=== PATIENT | male | born 1955 | race Caucasian/White ===

== ENCOUNTER 2018-11-19 13:45 | Emergency (ER) | payer MEDICARE, MEDICAID ==
[~2018-11-19] VITALS: Ht 165.1 cm; Wt 150.0 kg
[~2018-11-19 13:45] MED LIST: ASPIRIN CHEWABL81 MG OR; FLEXERIL OR; METFORMIN500 M1 OR; METFORMIN500 M1 PO; NEURONTIN100 MG PO; NO HOME MEDS; PRAVACHOL40 MG PO; ULTRAM50 M1 PO; ZESTRIL10 M1 PO
[2018-11-19 14:36] LABS: HEMATOCRIT 43.1 % (39.0-50.0); IMMATURE GRANULOCYTES 0.4 % (0.0-5.0); MEAN CELL VOLUME 90.9 fL CALC (80.0-100.0); MEAN CORPUSCULAR HGB 27.4 pG CALC (26.0-32.0); MEAN CORPUSCULAR HGB CONC 30.2 g/L CALC (32.0-36.0); RED BLOOD COUNT 4.74 mill/uL (4.70-6.10); RED CELL DISTRI WIDTH 16.8 % (11.5-15.5)
[2018-11-19 15:08] LABS: ANION GAP 13 (6-22 (CALC)); BUN 27 mg/dL (8-23); CARBON DIOXIDE 24 mmol/l (22-30); CHLORIDE 110 mmol/l (95-108); POTASSIUM 4.2 mmol/l (3.5-5.1)
[2018-11-19] MEDS ORDERED: METFORMIN500 MG PO (15:08)
[2018-11-19] MEDS ORDERED: ZESTRIL10 M1 PO (15:08)
[2018-11-19 15:16] LABS: URINE BILIRUBIN - DIPSTICK NEGATIVE (NEGATIVE); URINE BLOOD DIPSTICK MODERATE (NEGATIVE); URINE COLOR YELLOW; URINE GLUCOSE - DIPSTICK 100 mg/dL (NEGATIVE); URINE KETONE NEGATIVE (NEGATIVE); URINE LEUK ESTERASE NEGATIVE (NEGATIVE); URINE NITRITE - DIPSTICK NEGATIVE (Negative); URINE PROTEIN - DIPSTICK >=300 mg/dL (NEG-TRACE); URINE SPECIFIC GRAVITY >=1.030; URINE UROBILINOGEN - DIPSTICK 0.2 E.U./dL (0.2)
[2018-11-19 15:22] LABS: BUN/CREATININE RATIO 11 (12-20 (CALC)); CREATININE 2.5 mg/dL (0.7-1.3); GFR 26 ML/MIN (>=60 (CALC)); GFR FOR AFR.AMER. 32 ML/MIN (>=60 (CALC)); SODIUM 143 mmol/l (137-146)
[2018-11-19 15:25] LABS: URINE WBC 0-2 WBC/hpf (0-5)
[2018-11-19 17:56] VITALS: BP 186/90
== END 2018-11-19 17:38 | disposition short-term general hospital (02) ==
LOC: ED 13:45 → ED-I 13:59 → ED 13:59 → ED-I 15:18 → ED 17:38
PROVIDERS: Family Medicine
DX: I50.9 Heart failure, unspecified (principal); N28.9 Disorder of kidney and ureter, unspecified; N50.819 Testicular pain, unspecified; R06.02 Shortness of breath; R22.43 Localized swelling, mass and lump, lower limb, bilateral

== ENCOUNTER 2019-02-06 15:18 | Observation (INO) | payer MEDICARE, MEDICAID ==
[~2019-02-06] VITALS: Ht 165.1 cm; Wt 99.0 kg
[~2019-02-06 15:18] MED LIST changes: +METFORMIN500 MG PO
[2019-02-06 16:07] LABS: HEMATOCRIT 44.6 % (39.0-50.0); HEMOGLOBIN 14.9 g/dl (14.0-18.0); IMMATURE GRANULOCYTES 0.5 % (0.0-5.0); MEAN CELL VOLUME 86.1 fL CALC (80.0-100.0); MEAN CORPUSCULAR HGB 28.8 pG CALC (26.0-32.0); MEAN CORPUSCULAR HGB CONC 33.4 g/L CALC (32.0-36.0); NEUT# 12.33 thou/uL (1.82-7.42); RED BLOOD COUNT 5.18 mill/uL (4.70-6.10); RED CELL DISTRI WIDTH 14.7 % (11.5-15.5)
[2019-02-06 16:31] LABS: POTASSIUM 4.9 mmol/l (3.5-5.1)
[2019-02-06 16:33] LABS: ALBUMIN 4.5 g/dL (3.2-5.0); BILIRUBIN, TOTAL 1.3 mg/dL (0.0-1.4); CREATININE 3.6 mg/dL (0.7-1.3); TOTAL PROTEIN 8.5 g/dL (6.3-8.2)
[2019-02-06 17:29] LABS: TSH, 3RD GENERATION 3.55 uIU/mL (0.47 - 4.68)
[2019-02-06] MEDS ORDERED: BUMETANIDE1 MG PO (17:40)
[2019-02-06] MEDS ORDERED: AMLOD/BENAZP1 CA3 PO (17:40)
[2019-02-06] MEDS ORDERED: CARVEDILOL6.25 MG PO (17:40)
[2019-02-06] MEDS ORDERED: HYDRALAZINE50 MG PO (17:40)
[2019-02-06] MEDS ORDERED: LEVOTHYROXIN50 MCG PO (17:41)
[2019-02-06] MEDS ORDERED: SPIRONOLACT50 MG PO (17:41)
[2019-02-06 18:01] LABS: URINE BILIRUBIN - DIPSTICK NEGATIVE (NEGATIVE); URINE BLOOD DIPSTICK SMALL (NEGATIVE); URINE COLOR YELLOW; URINE GLUCOSE - DIPSTICK 100 mg/dL (NEGATIVE); URINE KETONE NEGATIVE (NEGATIVE); URINE LEUK ESTERASE NEGATIVE (NEGATIVE); URINE NITRITE - DIPSTICK NEGATIVE (Negative); URINE PH 5.5 (4.5-8.0); URINE PROTEIN - DIPSTICK >=300 mg/dL (NEG-TRACE); URINE SPECIFIC GRAVITY >=1.030; URINE UROBILINOGEN - DIPSTICK 0.2 E.U./dL (0.2)
[2019-02-06 18:02] LABS: URINE WBC 0-2 WBC/hpf (0-5)
[2019-02-06 19:35] VITALS: BP 112/71
[2019-02-07] VITALS (7 sets, daily range): BP systolic 115–175; BP diastolic 62–90
[2019-02-07 04:50] LABS: HEMOGLOBIN 14.4 g/dl (14.0-18.0); MEAN CELL VOLUME 86.8 fL CALC (80.0-100.0); MEAN CORPUSCULAR HGB 28.4 pG CALC (26.0-32.0); MEAN CORPUSCULAR HGB CONC 32.7 g/L CALC (32.0-36.0); RED BLOOD COUNT 5.07 mill/uL (4.70-6.10); RED CELL DISTRI WIDTH 14.6 % (11.5-15.5)
[2019-02-07 05:09] LABS: ALBUMIN 3.7 g/dL (3.2-5.0); BILIRUBIN, TOTAL 1.4 mg/dL (0.0-1.4); CREATININE 2.8 mg/dL (0.7-1.3); POTASSIUM 4.7 mmol/l (3.5-5.1); TOTAL PROTEIN 7.4 g/dL (6.3-8.2)
[2019-02-07 09:12] LABS: CHOLESTEROL HDL RATIO 5.4 (<4.4 (CALC)); MAGNESIUM 2.5 mg/dL (1.6-2.3)
[2019-02-07] MEDS ORDERED: NORVASC5 M1 PO (10:10)
[2019-02-07 12:21] LABS: PROTHROMBIN TIME 10.9 SECONDS (9.0-12.5)
[2019-02-08] VITALS (7 sets, daily range): BP systolic 120–178; BP diastolic 66–97
[2019-02-08 05:51] LABS: HEMATOCRIT 38.4 % (39.0-50.0); HEMOGLOBIN 12.7 g/dl (14.0-18.0); IMMATURE GRANULOCYTES 0.4 % (0.0-5.0); MEAN CELL VOLUME 87.3 fL CALC (80.0-100.0); MEAN CORPUSCULAR HGB 28.9 pG CALC (26.0-32.0); MEAN CORPUSCULAR HGB CONC 33.1 g/L CALC (32.0-36.0); NEUT# 13.41 thou/uL (1.82-7.42); RED BLOOD COUNT 4.4 mill/uL (4.70-6.10); RED CELL DISTRI WIDTH 14.6 % (11.5-15.5)
[2019-02-08 05:52] LABS: CREATININE 2.7 mg/dL (0.7-1.3); POTASSIUM 4.4 mmol/l (3.5-5.1)
[2019-02-09] VITALS (7 sets, daily range): BP systolic 115–178; BP diastolic 64–95
[2019-02-09 05:35] LABS: HEMATOCRIT 36.6 % (39.0-50.0); HEMOGLOBIN 12.1 g/dl (14.0-18.0); IMMATURE GRANULOCYTES 0.9 % (0.0-5.0); MEAN CELL VOLUME 87.8 fL CALC (80.0-100.0); MEAN CORPUSCULAR HGB CONC 33.1 g/L CALC (32.0-36.0); NEUT# 8.55 thou/uL (1.82-7.42); RED BLOOD COUNT 4.17 mill/uL (4.70-6.10); RED CELL DISTRI WIDTH 14.8 % (11.5-15.5)
[2019-02-09 05:39] LABS: CREATININE 2.3 mg/dL (0.7-1.3); MAGNESIUM 1.9 mg/dL (1.6-2.3); POTASSIUM 4.1 mmol/l (3.5-5.1)
[2019-02-10] VITALS (10 sets, daily range): BP systolic 107–171; BP diastolic 40–90
[2019-02-10] MEDS ORDERED: BUMETANIDE1 MG PO (11:51)
[2019-02-10] MEDS ORDERED: PROTONIX40 MG PO (11:51)
[2019-02-10] MEDS ORDERED: NORVASC5 M1 PO (11:51)
== END 2019-02-10 13:53 | disposition home health service (06) ==
LOC: ED 15:18 → ED-I 17:51 → ED 18:06 → MS2 18:07
PROVIDERS: Family Medicine; Nurse Anesthetist, Certified Registered; Nurse Practitioner Family; ADMIT Internal Medicine; ATTEND Internal Medicine
PROC: 0DJ08ZZ Inspection of Upper Intestinal Tract, Via Natural or Artificial Opening Endoscopic (ICD-10-PCS; principal; 2019-02-10)
PROC: 0DBH8ZX Excision of Cecum, Via Natural or Artificial Opening Endoscopic, Diagnostic (ICD-10-PCS; 2019-02-10)
PROC: 0DBL8ZX Excision of Transverse Colon, Via Natural or Artificial Opening Endoscopic, Diagnostic (ICD-10-PCS; 2019-02-10)
DX: R10.13 Epigastric pain (principal); R11.2 Nausea with vomiting, unspecified; R63.4 Abnormal weight loss; R63.0 Anorexia; N17.9 Acute kidney failure, unspecified; K80.20 Calculus of gallbladder without cholecystitis without obstruction; R62.7 Adult failure to thrive; K29.70 Gastritis, unspecified, without bleeding; D12.0 Benign neoplasm of cecum; D12.3 Benign neoplasm of transverse colon; Z68.33 Body mass index [BMI] 33.0-33.9, adult; E78.5 Hyperlipidemia, unspecified; E03.9 Hypothyroidism, unspecified; E11.22 Type 2 diabetes mellitus with diabetic chronic kidney disease; I13.0 Hypertensive heart and chronic kidney disease with heart failure and stage 1 through stage 4 chronic kidney disease, or unspecified chronic kidney disease; I50.9 Heart failure, unspecified; E11.40 Type 2 diabetes mellitus with diabetic neuropathy, unspecified; E11.69 Type 2 diabetes mellitus with other specified complication; N18.3 Chronic kidney disease, stage 3 (moderate); E86.1 Hypovolemia; E86.0 Dehydration; T50.2X5A Adverse effect of carbonic-anhydrase inhibitors, benzothiadiazides and other diuretics, initial encounter; K59.00 Constipation, unspecified
CPT/HCPCS: S0164

== ENCOUNTER 2019-02-13 12:20 | Emergency (ER) | payer MEDICARE, MEDICAID ==
[~2019-02-13] VITALS: Ht 165.1 cm; Wt 99.0 kg
[~2019-02-13 12:20] MED LIST changes: +AMLOD/BENAZP1 CA3 PO; +BUMETANIDE1 MG PO; +CARVEDILOL6.25 MG PO; +HYDRALAZINE50 MG PO; +LEVOTHYROXIN50 MCG PO; +NORVASC5 M1 PO; +PROTONIX40 MG PO; +SPIRONOLACT50 MG PO
[2019-02-13] MEDS ORDERED: ALLOPURINOL100 MG PO (12:35)
[2019-02-13 13:06] LABS: HEMATOCRIT 34.1 % (39.0-50.0); HEMOGLOBIN 11.5 g/dl (14.0-18.0); IMMATURE GRANULOCYTES 0.6 % (0.0-5.0); MEAN CELL VOLUME 86.8 fL CALC (80.0-100.0); MEAN CORPUSCULAR HGB 29.3 pG CALC (26.0-32.0); MEAN CORPUSCULAR HGB CONC 33.7 g/L CALC (32.0-36.0); NEUT# 7.28 thou/uL (1.82-7.42); RED BLOOD COUNT 3.93 mill/uL (4.70-6.10); RED CELL DISTRI WIDTH 15.3 % (11.5-15.5)
[2019-02-13 13:27] LABS: CREATININE 1.8 mg/dL (0.7-1.3); POTASSIUM 3.8 mmol/l (3.5-5.1)
[2019-02-13 13:28] LABS: ALBUMIN 2.9 g/dL (3.2-5.0); BILIRUBIN, TOTAL 0.5 mg/dL (0.0-1.4); TOTAL PROTEIN 5.8 g/dL (6.3-8.2)
[2019-02-13] MEDS ORDERED: LASIX 20 MG TAB20 MG PO (14:49)
[2019-02-13 14:51] LABS: URINE BILIRUBIN - DIPSTICK NEGATIVE (NEGATIVE); URINE BLOOD DIPSTICK NEGATIVE (NEGATIVE); URINE COLOR YELLOW; URINE GLUCOSE - DIPSTICK 100 mg/dL (NEGATIVE); URINE KETONE NEGATIVE (NEGATIVE); URINE LEUK ESTERASE NEGATIVE (NEGATIVE); URINE NITRITE - DIPSTICK NEGATIVE (Negative); URINE PH 5.5 (4.5-8.0); URINE PROTEIN - DIPSTICK 100 mg/dL (NEG-TRACE); URINE UROBILINOGEN - DIPSTICK 0.2 E.U./dL (0.2)
[2019-02-13 14:56] LABS: URINE RBC 0-2 RBC/hpf (0-5); URINE WBC 0-2 WBC/hpf (0-5)
[2019-02-13 15:15] VITALS: BP 107/59
== END 2019-02-13 15:15 | disposition home or self-care (01) ==
LOC: ED 12:20
PROVIDERS: Family Medicine
DX: I95.1 Orthostatic hypotension (principal); I11.0 Hypertensive heart disease with heart failure; I50.9 Heart failure, unspecified; E11.9 Type 2 diabetes mellitus without complications; M10.9 Gout, unspecified

== ENCOUNTER 2019-10-17 19:23 | Inpatient (IN) | payer MEDICARE, MEDICAID ==
[~2019-10-17] VITALS: Ht 165.1 cm; Wt 116.3 kg
[~2019-10-17 19:23] MED LIST changes: +ALLOPURINOL100 MG PO; +LASIX 20 MG TAB20 MG PO
--- NOTE | 2019-10-17 20:18 | NUR ---
BY WC TO ROOM
--- NOTE | 2019-10-17 21:00 | NUR ---
RESTING QUIETLY. AWAITING TEST RESULTS
[2019-10-17 21:03] LABS: HEMATOCRIT 37.5 % (39.0-50.0); HEMOGLOBIN 11.6 g/dl (14.0-18.0); IMMATURE GRANULOCYTES 0.2 % (0.0-5.0); MEAN CELL VOLUME 92.4 fL CALC (80.0-100.0); MEAN CORPUSCULAR HGB 28.6 pG CALC (26.0-32.0); MEAN CORPUSCULAR HGB CONC 30.9 g/dL CAL (32.0-36.0); NEUT# 3.7 thou/uL (1.82-7.42); RED BLOOD COUNT 4.06 mill/uL (4.70-6.10); RED CELL DISTRI WIDTH 16.1 % (11.5-15.5)
[2019-10-17 21:23] LABS: ALBUMIN 3.1 g/dL (3.2-5.0); BILIRUBIN, TOTAL 0.3 mg/dL (0.0-1.4); TOTAL PROTEIN 5.9 g/dL (6.3-8.2)
[2019-10-17 21:24] LABS: CREATININE 4.2 mg/dL (0.7-1.3)
--- NOTE | 2019-10-17 22:00 | NUR ---
NO CHANGE IN EXAM. AWAITING DISPOSITION.
--- NOTE | 2019-10-17 23:08 | NUR ---
TELEPHONE REPORT RECEIVED FROM Reese DOWLING RN. ROOM 281 PREPARED FOR PTs ARRIVAL.
--- NOTE | 2019-10-17 23:16 | NUR ---
Admission Note Report Given to: KASSDIY CASTANON Transported by: Wheelchair X Stretcher Transported with: X Nurse Transporter X Patent IV X O2 X Microscopist Location: ICU X MS2
--- NOTE | 2019-10-17 23:16 | NUR ---
UNABLE TO DETERMINE LAST MED DOSAGES GIVEN.
--- NOTE | 2019-10-17 23:20 | NUR ---
PT ARRIVES TO UNIT VIA STRETCHER, ACCOMPANIED BY Reese DOWLING RN. PT AMBULATORY TO BED. PT ORIENTED TO UNIT, ROOM, BED/TV/CALL LIGHT. PT VERBALIZES UNDERSTANDING. DENIES NEEDS AT THIS TIME. PT DENIES DISCONFORT AT THIS TIME. ITEMS WITHIN REACH. BED LOCKED IN LOW POSITION WITH BEDRAILS UP X2. CALL GUILLEN WITHIN REACH. AGREES TO CALL PRN.
[2019-10-17 23:37] VITALS: BP 195/107
[2019-10-17 23:58] LABS: URINE BILIRUBIN - DIPSTICK NEGATIVE (NEGATIVE); URINE BLOOD DIPSTICK MODERATE (NEGATIVE); URINE COLOR YELLOW; URINE GLUCOSE - DIPSTICK 250 mg/dL (NEGATIVE); URINE KETONE NEGATIVE (NEGATIVE); URINE LEUK ESTERASE NEGATIVE (NEGATIVE); URINE NITRITE - DIPSTICK NEGATIVE (Negative); URINE PROTEIN - DIPSTICK >=300 mg/dL (NEG-TRACE); URINE SPECIFIC GRAVITY 1.025; URINE UROBILINOGEN - DIPSTICK 0.2 E.U./dL (0.2)
[2019-10-17 23:59] LABS: URINE WBC 0-2 WBC/hpf (0-5)
[2019-10-18] VITALS (7 sets, daily range): BP systolic 136–195; BP diastolic 68–93
--- NOTE | 2019-10-18 00:10 | NUR ---
ADMISSION AND PHYSICAL ASSESMENT COMPLETE. PT CURRENTLY DENIES PAIN OR DISCOMFORT. B/L PUGH ULCERATIONS, COVERED WITH WHAT APPEARS TO BE MATTED HAIR, DIRT, AND DRIED BLOOD. BLE CLEANSED WITH SALINE, PATTED DRY. PICTURE DOCUMENTATION TAKEN AND PLACED ON CHART. DUODERM HYDROCOLLOID DRESSING PLACED OVER B/L PUGH ULCERS. SCHEDULED MEDS ADMINISTERED, SEE E-MAR. PT DENIES ANY NEEDS AT THIS TIME. PLAN OF CARE REVIEWED, PT DENIES QUESTIONS, VERBALIZES UNDERSTANDING. DENIES NEEDS AT THIS TIME. ITEMS WITHIN REACH, BED LOCKED IN LOW POSITION W/ BEDRAILS UP X2. CALL GUILLEN WITHIN REACH, AGREES TO CALL PRN.
--- NOTE | 2019-10-18 01:42 | NUR ---
UPON ENTERING ROOM PT APPEARS TO BE SLEEPING. APPEARS COMFORTABLE AND IN NO APPARENT DISTRESS. RESPIRATIONS ARE REGULAR AND UNLABORED. ITEMS REMAIN WITHIN REACH, BED REMAINS LOCKED IN LOW POSITION W/ BEDRAILS UP X2 AND CALL GUILLEN REMAINS WITHIN REACH.
[2019-10-18 06:12] LABS: HEMATOCRIT 34.1 % (39.0-50.0); HEMOGLOBIN 10.8 g/dl (14.0-18.0); IMMATURE GRANULOCYTES 0.2 % (0.0-5.0); MEAN CELL VOLUME 91.7 fL CALC (80.0-100.0); MEAN CORPUSCULAR HGB CONC 31.7 g/dL CAL (32.0-36.0); NEUT# 3.63 thou/uL (1.82-7.42); RED BLOOD COUNT 3.72 mill/uL (4.70-6.10)
--- NOTE | 2019-10-18 06:20 | NUR ---
PT SIITNG UP AT EDGE OF BED. NO APPARENT DISTRESS. RESPIRATIONS REGULAR AND UNLABORED.PHYSICAL ASSESMENT UNCHANGED FROM BEGINING OF SHIFT BASELINE. PT AFEBRILE, HEMODYNAMICS STABLE. AM LABS DRAWN. DENIES NEEDS AT THIS TIME. ITEMS REMAIN WITHIN REACH. BED REMAINS LOCKED IN LOW POSITION W/ BEDRAILS UPX2. CALL GUILLEN REMAINS WITHIN REACH, AGREES TO CALL PRN.
[2019-10-18 06:30] LABS: ALBUMIN 2.7 g/dL (3.2-5.0); BILIRUBIN, TOTAL 0.3 mg/dL (0.0-1.4); C-REACTIVE PROTEIN 1.9 mg/dL (0-0.9); CREATININE 4.1 mg/dL (0.7-1.3); POTASSIUM 4.1 mmol/l (3.5-5.1); TOTAL PROTEIN 5.3 g/dL (6.3-8.2)
--- NOTE | 2019-10-18 07:00 | NUR ---
REPORT RECEIVED FROM KASSIDY CASTANON.
--- NOTE | 2019-10-18 08:44 | NUR ---
PT SITTING UP IN EDGE OF BED; ALERT AND ORIENTED. DENIES PAIN. RESPIRATIONS EVEN AND UNLABORED ON OXYGEN 1.5L; DENIES SOB WHILE SITTING UP, BUT STATES THAT HE HAS SLIGHT SOB WHEN LAYING DOWN; PT IS OBESE. BLOOD PRESSURE ELEVATED AT 195/93 HR 74; SCHEDULED BP MEDS ADMINISTERED ALONG WITH NEW ORDER FOR LASIX AND IV FLUIDS DECREASED TO KVO; PT ASYPTOMATIC. LUNGS ARE CLEAR; OPEN WOUNDS TO BILATERAL SHINS; WEEPING SEROUS DRAINAGE IN MODERATE AMOUNTS. PLAN OF CARE REVIEWED. PT ENCOURAGED TO VERBALIZE CONCERNS. STATES UNDERSTANDING. SAFETY MEASURES IN PLACE. CALL LIGHT WITHIN REACH.
[2019-10-18] MEDS ORDERED: SPIRONOLACTONE50 MG PO (09:35)
[2019-10-18] MEDS ORDERED: AMLODIPINE BESY10 MG PO (09:36)
[2019-10-18] MEDS ORDERED: ALLOPURINOL100 MG PO (09:36)
[2019-10-18] MEDS ORDERED: LISINOPRIL10 MG PO (09:37)
[2019-10-18] MEDS ORDERED: BUMETANIDE2 MG PO (09:37)
--- NOTE | 2019-10-18 10:00 | NUR ---
BLOOD PRESSURE DOWN TO 160/80 AFTER MEDICATIONS. SPO2 98% ON 1.5L; OXYGEN REMOVED AND PT PLACED ON ROOM AIR. TELE ON. PT REMAINS ON AIRBORNE/CONTACT PRECAUTIONS PENDING COVID SWAB RESULTS.
--- NOTE | 2019-10-18 12:00 | NUR ---
IV SITE FOUND DISLODGED; IV FLUIDS PAUSED. PT CONTINUES SITTING UP ON EDGE OF BED; SPO2 95% ON ROOM AIR. VOIDING LARGE AMOUNTS OF CLEAR YELLOW URINE.
--- NOTE | 2019-10-18 12:30 | NUR ---
NEW IV SITE PLACED TO RAC AND FLUIDS RESTARTED AT KVO; RENAL DOSED ZOSYN INFUSING AT THIS TIME.
--- NOTE | 2019-10-18 14:25 | NUR ---
LEGS CONTINUE WITH WEEPING AT OPEN WOUNDS; ABD PADS AND KERLEX APPLIED WITH PAPER TAPE AND NEW SOCKS PROVIDED. NEW ORDER FOR NORVAS RECEIVED AND ADMINISTERED.
--- NOTE | 2019-10-18 15:30 | NUR ---
SPO2 85-86% ON ROOM AIR AT REST; OXYGEN REAPPLIED AT 1.5L; QUICKLY UP TO 91%. PT ASYMPTOMATIC. WILL CONTINUE TO MONITOR.
--- NOTE | 2019-10-18 20:37 | NUR ---
PT SITTING ON WALKER SEAT, ALERT AND ORIENTED. PT ASSISTED BACK INTO BED. RESPIRATIONS EVEN AND UNLABORED AT REST, EXERSIONAL SOB NOTED, O2 @ 1.5L PRN. LUNGS SOUND DIMINISHED THROUGH OUT. PEDAL PULSES WEAK. TRACE EDEMA NOTED TO LOWER EXTREMITIES. PT DENIES ANY PAIN OR DISCOMFORT AT THIS TIME. DRESSINGS TO LOWER EXTREMITIS CDI. TELE IN PLACE. 300CC URINE IN URINAL. CALL GUILLEN WITHIN REACH, PT LEFT SITTING ON THE SIDE OF THE BED. WILL CONTINUE TO MONITOR.
--- NOTE | 2019-10-19 00:32 | NUR ---
PT RESTING IN BED, RESPIRATIONS EVEN AND UNLABORED ON O2 @ 1.5L VIA NC. TELE IN PLACE. NO S/S OF DISTRESS AT THIS TIME. SAFETY PRECAUTIONS IN PLACE. WILL CONTINUE TO MONITOR.
--- NOTE | 2019-10-19 05:15 | NUR ---
PT RESTING IN BED RESPIRATIONS EVEN AND UNLABORED ON O2 @ 2L VIA NC. DRESSINGS TO LOWER EXTREMITIES SOILED, OLD DRESSINGS REMOVED, WOULDS CLEANED WITH SALINE, AND NEW DRESSING APLIED, PT TOLERATED WELL. SAFETY PRECAUTIONS IN PLACE. WILL CONTINUE TO MONITOR.
[2019-10-19 05:16] VITALS: BP 164/90
[2019-10-19 06:25] LABS: HEMATOCRIT 36.3 % (39.0-50.0); HEMOGLOBIN 11.2 g/dl (14.0-18.0); IMMATURE GRANULOCYTES 0.4 % (0.0-5.0); MEAN CELL VOLUME 91.7 fL CALC (80.0-100.0); MEAN CORPUSCULAR HGB 28.3 pG CALC (26.0-32.0); MEAN CORPUSCULAR HGB CONC 30.9 g/dL CAL (32.0-36.0); NEUT# 6.1 thou/uL (1.82-7.42); RED BLOOD COUNT 3.96 mill/uL (4.70-6.10); RED CELL DISTRI WIDTH 15.9 % (11.5-15.5)
[2019-10-19 06:40] LABS: ALBUMIN 3.1 g/dL (3.2-5.0); BILIRUBIN, TOTAL 0.4 mg/dL (0.0-1.4); CREATININE 4.4 mg/dL (0.7-1.3); TOTAL PROTEIN 5.7 g/dL (6.3-8.2)
[2019-10-19 10:45] VITALS: BP 160/82
--- NOTE | 2019-10-19 10:54 | NUR ---
PT SITTING UP ON THE SIDE OF THE BED WITH NO COMPLICATIONS NOTED. MEDICATIONS GIVEN AND TOLERATED WELL. CONTINUES ON DIURETIC THERAPY. DENIES PAIN. DRESSINGS INTACT TO BILAT LOWER EXTREMITIES AND CONTINUES TO HAVE +2 PITTING EDEMA. PT ENCOURAGED TO SIT UP IN RECLINIG CHAIR IN ROOM TO ELEVATE LOWER EXTREMITIES. SECONDARY HISTORY TEACHER IN TO SEE PT TODAY AND ORDERS NOTED. RESPIRATINON ARE EVEN AND NONLABORED. CALL LIGHT WITHIN REACH AND BED IN LOWEST POSITION. WILL CONTINUE TO OBSERVE.
[2019-10-19 14:50] VITALS: BP 149/77
--- NOTE | 2019-10-19 15:37 | NUR ---
IV LINE REMOVED AND PT TOLERATED WELL.
--- NOTE | 2019-10-19 16:22 | NUR ---
PT IN BED WITH EYES OPEN AND ABLE TO MAKE NEEDS KNOWN. NO RESPIRATORY DISTRESS NOTED. CALL LIGHT IS WITHIN REACH. TOLERATING ABT THERAPY WELL. WILL CONTINUE TO OBSERVE. CONSULT CALLED IN TO DR. PLAZA FOR CKD.
[2019-10-19 19:58] VITALS: BP 166/79
--- NOTE | 2019-10-19 20:50 | NUR ---
PT RESTING IN BED. ALERT AND ORIETED. RESPIRATIONS EVEN AND UNLABORED ON O2 @L VIA NC. LUNGS SOUND DIMINISHED. PEDAL PULSES WEAK. DRESSING TO LOWER EXTREMITIES CHANGED AT THIS TIME, PT TOLERAT WELL. TELE IN PLACE. PT REPORTS HAVING AN UPSET STOMACH, PT DENIES NEEDING ANYTHING AT THIS TIME. CALL GUILLEN WITHIN REACH WILL CONTINUE TO MONITOR.
[2019-10-20] VITALS (7 sets, daily range): BP systolic 145–195; BP diastolic 77–93
--- NOTE | 2019-10-20 00:12 | NUR ---
PT RESTING IN BED, RESPIRATIONS EVEN AND UNLABORED ON O2 @ 1.5L VIA NC. TELE IN PLAC.E WILL CONTINUE TO MONITOR.
--- NOTE | 2019-10-20 05:00 | NUR ---
PT SITTING UP AT THE SIDE OF THE BED. RESPIRATIONS EVEN AND UNLABORED ON O2 @ 1.5. NO D/D OF DISTRESS AT THIS TIME. SAFETY PRECAUTIONS IN PLACE. WILL CONTINUE TO MONITOR.
[2019-10-20 06:33] LABS: HEMATOCRIT 35.8 % (39.0-50.0); IMMATURE GRANULOCYTES 0.2 % (0.0-5.0); MEAN CELL VOLUME 90.6 fL CALC (80.0-100.0); MEAN CORPUSCULAR HGB 27.8 pG CALC (26.0-32.0); MEAN CORPUSCULAR HGB CONC 30.7 g/dL CAL (32.0-36.0); NEUT# 4.72 thou/uL (1.82-7.42); RED BLOOD COUNT 3.95 mill/uL (4.70-6.10); RED CELL DISTRI WIDTH 16.1 % (11.5-15.5)
[2019-10-20 06:44] LABS: BILIRUBIN, TOTAL 0.5 mg/dL (0.0-1.4); C-REACTIVE PROTEIN 6.6 mg/dL (0-0.9); CHOLESTEROL HDL RATIO 3.3 (<4.4 (CALC)); CREATININE 4.6 mg/dL (0.7-1.3); POTASSIUM 3.8 mmol/l (3.5-5.1); TOTAL PROTEIN 5.7 g/dL (6.3-8.2)
--- NOTE | 2019-10-20 07:35 | NUR ---
RECEIVED REPORT ON PT THIS AM AND NO RESPIRATORY DISTRESS NOTED. NO COMPLAINTS OF PAIN OR DISCOMFORT. CALL LIGHT WITHIN REACH. WILL CONTINUE TO OBSERVE-
--- NOTE | 2019-10-20 08:30 | NUR ---
PT SITTING ON SIDE OF BED WITH NO RESPIRATORY DISTRESS NOTED. LOOSE STOOLS NOTED DURING THE NIGHT AND COMPLAINED OF LOSS OF TASTE THIS AM. MEDICATION GIVEN AND TOLERATED WELL. DRESSING INTACT TO BILATERAL LOWER EXTEMITIES. REFUSED BREAKFAST THIS AM BUT TOLERATING FLUIDS WELL. OXYGEN THERAPY IN PLACE AT 1.5LNC. O2 SAT 95%. CONTINUES WITH EDEMA TO LOWER EXTREMITIES THAT HAS IMPROVED. CALL LIGHT WITHI REACH. WILL CONTINUE TO OBSERVE.
--- NOTE | 2019-10-20 17:58 | NUR ---
PT IN BED WITH EYES CLOSED. NO S/S OF DISTRESS. CONTINUES ON IV ABT THERAPY. PT CONTINUES WITH DIARRHEA, AWARE AND NEW ORDERS AT THIS TIME. TOLERATING FLUIDS BY MOUTH WELL. BLOOD SUGAR 77 AND WAS GIVEN ORANGE JUICE AND EDUCATED PT ON EAING MEALS TO MANAGE BLOOD SUGARS. PT STATED THAT HE UNDERSTOOD AND HE WOULD TRY TO EAT MORE. SHOWER DONE. COVID SWAB BACK AND POSITIVE RESULTS. CONTINUES ONB IV ABT THERAPY. MD IN TO SEE PT AND NEW ORDERS NOTED. LUNG SOUNDS ARE DIMINISHED IN LOWER LOBES. CALL LIGT WITHIN REACH. WILL CONTINUE TO OBSERVE.
--- NOTE | 2019-10-20 19:00 | NUR ---
kidney ultrasound and ECHo will be done in am.
--- NOTE | 2019-10-20 20:34 | NUR ---
PT ASSESSMENT COMPLETED AND MEDICATIONS ADMINISTERED AT THIS TIME. PT REPORTS LOOSE STOOL TODAY, LUNG SOUNDS ARE DIM. PICTURES TAKEN FOR CHART OF BLE. PT OFFERED DRINK, SNACK, DENIED ANYTHING. WILL REASSESS SUGAR AT MIDNIGHT. NO S/O DISTRESS AT THIS TIME. PT LOCX3. PT DENIES ANY OTHER NEEDS FOR COMFORT AND REORIENTED TO CALL SYSTEM NEEDS ARISE.
[2019-10-21] VITALS: BP 143/62
--- NOTE | 2019-10-21 00:50 | NUR ---
PT MEDICATED ORDERS PROVIDE. PT WAS SLEEPING, BUT AWOKE TO MY ENTERING THE ROOM AND VOICE. PT DENIES ANY NEEDS OR DISTRESSES AT THIS TIME. CALL LIGHT W/IN REACH.
--- NOTE | 2019-10-21 03:03 | NUR ---
PT SLEEPING, NO S/O DISTRESS NOTED. DRINKS HAVE BEEN REMOVED FROM BEDSIDE AND NPO SIGN PLACED ON DOORSIDE.
[2019-10-21 04:05] VITALS: BP 147/82
--- NOTE | 2019-10-21 05:33 | NUR ---
PT MEDICATED ORDERS PROVIDE AND BLOOD DRAWN FOR LABS. PT TOLERATED WELL. IV ANTIBIOTIC THERAPY ADMINISTERED AT THIS TIME. PT UP TO BSC, DENIES NEEDS OF ASSISTANCE. WALKER AND CALL LIGHT W/IN REACH. PT ENCOURAGED TO CALL ANY NEEDS ARIVE.
[2019-10-21 06:14] LABS: HEMATOCRIT 32.3 % (39.0-50.0); HEMOGLOBIN 10.1 g/dl (14.0-18.0); IMMATURE GRANULOCYTES 0.3 % (0.0-5.0); MEAN CELL VOLUME 90.2 fL CALC (80.0-100.0); MEAN CORPUSCULAR HGB 28.2 pG CALC (26.0-32.0); MEAN CORPUSCULAR HGB CONC 31.3 g/dL CAL (32.0-36.0); NEUT# 2.58 thou/uL (1.82-7.42); RED BLOOD COUNT 3.58 mill/uL (4.70-6.10); RED CELL DISTRI WIDTH 15.7 % (11.5-15.5)
[2019-10-21 06:39] LABS: ALBUMIN 2.6 g/dL (3.2-5.0); BUN 43 mg/dL (8-23); CARBON DIOXIDE 19 mmol/l (22-30); CHLORIDE 108 mmol/l (95-108); CREATININE 4.6 mg/dL (0.7-1.3); GFR 13 ML/MIN (>=60 (CALC)); GFR FOR AFR.AMER. 16 ML/MIN (>=60 (CALC)); SODIUM 135 mmol/l (137-146)
[2019-10-21 06:44] LABS: ALBUMIN 2.6 g/dL (3.2-5.0); BILIRUBIN, TOTAL 0.4 mg/dL (0.0-1.4); C-REACTIVE PROTEIN 6.3 mg/dL (0-0.9); CREATININE 4.7 mg/dL (0.7-1.3); TOTAL PROTEIN 4.9 g/dL (6.3-8.2)
[2019-10-21 10:25] VITALS: BP 162/79
[2019-10-21 15:32] VITALS: BP 132/68
[2019-10-21 18:50] VITALS: BP 140/62
--- NOTE | 2019-10-21 19:32 | NUR ---
PT WENT TO HAVE DOPPLER AND ECHO DONE THIS AM AND RETURNED WITH NO COMPLICATIONS NOTED PT IS ALERT AND ORIENTED AND ABLE TO MAKE NEEDS KNOWN. CONTINENT OF B/B AND ABLE TO USE BSC AT BEDSIDE WITH NO COMPLICATIONS. IV SITE WAS CHANGED DUE TO PATIENT PULLED OUT SITE UNINTENTIONALLY. 20G PLACED IN RIGHT WRIST AREA AND PT TOLERATED IV PLACEMENT WELL.MEAL AND FLUID INTAKE HAS BEEN GOOD THROUGHOUT THE DAY. CONTINUES ON IV ABT THERAPY WITH NO ADVERSE SIDE EFFECTS NOTED.
--- NOTE | 2019-10-21 20:04 | NUR ---
PT MEDICATED ORDERS PROVIDE. IVPUMP WAS SOUNDING. PUMP RESET FOR FLUIDS. ASSESSMENT COMPLETED AT THIS TIME ALSO. PT REPORTS FEELING MUCH BETTER AND ABLE TO SELF AMBULATE TO BSC USING WALKER. REPORTS SMALL STOOL THIS DAY. LUNG SOUNDS ARE DIM. DENIES ANY NEEDS AT THIS TIME AND HAS BEEN ENCOURAGED TO CALL NEEDS ARISE.
[2019-10-21 23:05] VITALS: BP 138/72
--- NOTE | 2019-10-21 23:05 | NUR ---
TEXTILE DESIGNS SALES REPRESENTATIVE IN W/PT OBTAINING V/S. NO S/O DISTRESS NOTED. PT HAD BM IN BSC MODERATE AMOUNT. PT IS UPRIGHT AT THIS TIME EATING FOOD HE HAD AT BEDSIDE. DENIES ANY OTHER NEEDS. CALL LIGHT W/IN REACH.
--- NOTE | 2019-10-21 23:31 | NUR ---
PT MEDICATED ORDERS PROVIDE AND ICEWATER PROVIDED AT THIS TIME. PT DENIES ANY OTHER NEEDS.
[2019-10-22 03:40] VITALS: BP 162/88
--- NOTE | 2019-10-22 04:06 | NUR ---
BLOOD DRAWN FOR LABS. PT DENIES ANY OTHER NEEDS AT THIS TIME. CALL LIGHT IS W/IN REACH. DENIES ANY OTHER NEEDS AT THIS TIME. PT ENCOURAGED TO CALL NEEDS ARISE.
[2019-10-22 05:23] LABS: ALBUMIN 2.6 g/dL (3.2-5.0); CREATININE 4.9 mg/dL (0.7-1.3); POTASSIUM 3.5 mmol/l (3.5-5.1)
--- NOTE | 2019-10-22 09:10 | NUR ---
RECIEVED REPORT FROM KASSIDY MAR. PT SITTING ON SIDE OF BED UPON ENTERING ROOM. INTRODUCED SELF TO PT AND DISCUSSED POC. ASSESSMENT AND VITAL COMPLETED AT THIS TIME. BP 148/77, HR 71, O2 98% ON 1.5 NC. RESPIRATIONS ARE EVEN AND UNLABORED WTIH NO SIGNS OF DISTRESS. LUNG SOUNDS ARE DIMINISHED, PT DENIES ANY SOB. HEART RHYTHM IS NORMAL, TELE EIN PLACE. BOWEL SOUNDS ARE ACTIVE IN ALL QUADRANTS, LAST REPORTED BM 10/22/19. PT PRESENTS WITH ABCESS COMING FROM [facility]. PT STATES "IT FROM AND ERUPTION YEARS AGO". IV FLUIDS RUNNING AT 10 ML AAS ORDERED, SITE APPEARS HEALTHY AND PATENT. RADIAL PULSES ARE STRONG WITH NORMAL CAPILLARY REFILL. PEDAL PULSES ARE WEAK WITH NORMAL CAPILLARY REFILL. PT DENIES ANY APIN OR DISCOMFORTS AT THID TIME. ALL SAFETY AND ISOLATION PRECAUTIONS IN PLACE WITH CALL LIGHT IN REACH. WILL CONTINUE TO MONITOR.
[2019-10-22 09:18] VITALS: BP 148/77
--- NOTE | 2019-10-22 12:18 | NUR ---
DR MANCERA CALLING INTO PT ROOM TO DISCUSS POC
[2019-10-22 12:19] VITALS: BP 119/74
--- NOTE | 2019-10-22 12:28 | NUR ---
PT SITTING IN RECYLINER WATCHING TV AT THIS TIME. IV ANTIBIOTICS BEING ADMINISTERED WITH EASE. RESPIRATIONS ARE EVEN AND UNLABORED WITH NO SIGNS OF DISTRESS. PT DENIES ANY PAIN OR ADDITIONAL NEEDS AT THIS TIME. ALL SAFETY PRECAUTIONS IN PLACE WITH CALL LIGHT IN REACH. WILL CONTINUE TO MONITOR
--- NOTE | 2019-10-22 16:08 | NUR ---
PT SITTING ON SIDE OF BEDSIDE.RESPIRATIONS ARE EVEN AND UNLABORED WITH NO SIGNS OF DISTRESS. PT DENIES ANY PAIN OR DISCOMFORTS AT THIS TIME. ALL SAFETY PRECAUTIONS IN PLACE WITH CALL LIGHT IN REACH.WILL CONTINUE TO MONITOR
[2019-10-22 16:55] VITALS: BP 144/73
[2019-10-22 18:54] VITALS: BP 155/71
--- NOTE | 2019-10-22 20:35 | NUR ---
UPON ENTERING ROOM PT FOUND TO BE LAYING IN BED, APPEARS TO BE RESTING COMFORTABLY. PHYSICAL ASSESMENT COMPLETE. PT CURRENTLY DENIES PAIN OR DISCOMFORT. SCHEDULED MEDS ADMINISTERED, SEE E-MAR. PT DENIES ANY NEEDS AT THIS TIME. PLAN OF CARE REVIEWED, PT DENIES QUESTIONS, VERBALIZES UNDERSTANDING. DENIES NEEDS AT THIS TIME. ITEMS WITHIN REACH, BED LOCKED IN LOW POSITION W/ BEDRAILS UP X2. CALL GUILLEN WITHIN REACH, AGREES TO CALL PRN.
[2019-10-23] VITALS (7 sets, daily range): BP systolic 140–176; BP diastolic 70–80
--- NOTE | 2019-10-23 00:45 | NUR ---
PT APPEARS TO BE SLEEPING COMFORTABLY, NO APPARENT DISTRESS, RESPIRATIONS REGULAR AND UNLABORED. ITEMS REMAIN WITHIN REACH, BED REMAINS LOCKED IN LOW POSITION W/ BEDRAILS UP X2. CALL GUILLEN REMAINS WITHIN REACH.
--- NOTE | 2019-10-23 05:45 | NUR ---
PREVIOUS SITE 20G TO R FA DC'd D/T EXPIRATION. CATH INTACT. NEW SITE INSERTED TO R FA 22G X1 ATTEMPT. AM LABS DRAWN FROM NEW SITE.
[2019-10-23 06:05] LABS: HEMATOCRIT 34.3 % (39.0-50.0); HEMOGLOBIN 10.9 g/dl (14.0-18.0); IMMATURE GRANULOCYTES 0.5 % (0.0-5.0); MEAN CELL VOLUME 88.9 fL CALC (80.0-100.0); MEAN CORPUSCULAR HGB 28.2 pG CALC (26.0-32.0); MEAN CORPUSCULAR HGB CONC 31.8 g/dL CAL (32.0-36.0); NEUT# 4.78 thou/uL (1.82-7.42); RED BLOOD COUNT 3.86 mill/uL (4.70-6.10); RED CELL DISTRI WIDTH 15.3 % (11.5-15.5)
--- NOTE | 2019-10-23 06:20 | NUR ---
ASSESMENT UNCHANGED FROM BEGINING OF SHIFT BASELINE ASSESMENT. AM HEMODYNAMICS WNL/ STABLE. PT AFEBRILE. PT DENIES NEEDS AT THIS TIME. ITEMS REMAIN WITHIN REACH, BED REMAINS LOCKED IN LOW POSITION W/ BEDRAILS UP X2. CALL GUILLEN REMAINS WITHIN REACH, AGREES TO CALL PRN.
[2019-10-23 06:28] LABS: BILIRUBIN, TOTAL 0.3 mg/dL (0.0-1.4); POTASSIUM 3.3 mmol/l (3.5-5.1); TOTAL PROTEIN 5.5 g/dL (6.3-8.2)
[2019-10-23 06:37] LABS: CREATININE 5.1 mg/dL (0.7-1.3)
--- NOTE | 2019-10-23 09:09 | NUR ---
DR NAM AT BEDSIDE DISCUSSING POC
--- NOTE | 2019-10-23 09:36 | NUR ---
RECIEVED REPORT FROM KASSIDY CASTANON. PT SITTING UP ON SIDE OF BED UPON ENTERING ROOM. INTRODUCED SELF TO PT AND DISCUSSED POC. ASSESSMENT AND VITAKS COMPLETED AT THIS TIME. BP 171/80, HR 76, O2 97% ON 1.5L NC. RESPIRATIONS ARE EVEN AND UNLABORED WITH NO SIGNS OF DISTRESS. LUNG SOUNDS ARE DIMINISHED, PT DENIES SOB. HEART RHYTHM IS NORMAL WITH TELE IN PLACE.BOWEL SOUNDS ARE ACTIVE IN ALL QUADRANTS. RADIAL AND PEDAL PULSES ARE STRONG WITH NORMAL CAPILLAR REFILL. PT DOES PRESENT WITH NO REDNESS AND DRYNESS TO SHINS, PICTURES DOCUMENTED IN CHART. IV FLUIDS RUNNING AT 10 ML ORDERED, SITE APPEARS HEALTHY AND PATENT. PT DENIES OF ANY PAIN OR DISCOMFORTS AT THIS TIME. ALL SAFTEY PRECAUTIONS IN PLACE WITH CALL LIGHT IN REACH. WILL CONTINUE TO MONITOR
--- NOTE | 2019-10-23 11:38 | NUR ---
PT RESTING IN HIGH FOLWERS POSITION WATCHING TV. RESPIRATIONS ARE EVEN AND UNLABORED WITH NO SIGNS OF DISTRESS. PT DENIES OF ANY PAIN OR DISCOMFORTS AT THIS TIME. ALL SAFETY AND ISOLATION PRECAUTIONS IN PLACE WITH CALL LIGHT IN REACH. WILL CONTINUE TO MONITOR.
--- NOTE | 2019-10-23 15:22 | NUR ---
PROCRIT CONSULT PATIENT'S HGB IS 10.9 AND IS ON DOSE 2/5 OF VENOFER IV 200MG NO NEED FOR PROCRIT AT THIS TIME RECHECK HGB AFTER VENOFER FINISHED. GABINO HARRISON PHARMD
--- NOTE | 2019-10-23 16:09 | NUR ---
PT SITTING UP ON SIDE OF BED WATCHING TV. RESPIRTAIONS ARE EVEN AND UNLABORED WITH NO SIGNS OF DISTRESS. RESPIRATIONS ARE EVEN AND UNLABORED WITH NO SIGNS OF DISTRESS. PT DENIES ANY PAIN OR DISCOMFORTS AT THIS TIME. ALL SAFTEY PRECAUTIONS IN PLACE WITH CALL LIGTH IN REACH. WILL CONTINUE TO MONITOR.
--- NOTE | 2019-10-23 20:50 | NUR ---
PT SITTING ON EDGE OF BED, NO APPARENT DISTRESS, RESPIRATIONS REG & UNLABORED. PHYSICAL ASSESMENT COMPLETE. PT CURRENTLY DENIES PAIN OR DISCOMFORT. SCHEDULED MEDS ADMINISTERED, SEE E-MAR. PT DENIES ANY NEEDS AT THIS TIME. PLAN OF CARE REVIEWED, PT DENIES QUESTIONS, VERBALIZES UNDERSTANDING. ITEMS WITHIN REACH, BED LOCKED IN LOW POSITION W/ BEDRAILS UP X2. CALL GUILLEN WITHIN REACH, AGREES TO CALL PRN.
[2019-10-24 05:18] VITALS: BP 158/82
[2019-10-24 05:54] LABS: ALBUMIN 2.7 g/dL (3.2-5.0); POTASSIUM 3.3 mmol/l (3.5-5.1)
[2019-10-24 09:03] VITALS: BP 142/61
--- NOTE | 2019-10-24 09:03 | NUR ---
RECIEVED REPORT FROM KASSIDY CASTANON. PT SITTING ON SIDE OF BED UPON ENTERING ROOM.INTRODUCED SELF TO PT AND DISCUSSED POC. ASSESSMENT AND VITALS OBTAINED. BP 142/61, HR 76, O2 91% ON 1.5L NC. RESPIRATIONS ARE EVEN AND UNLABORED WITH NO SIGNS OF DISTRESS.LUNG SOUNDS ARE CLEAR. HEART RHYTHM IS NORMLA WITH TELE IN PLACE. IV FLUIDS RUNNING AT 10 ML ORDERED, SITE APPEARS HEALTHY AND PATNET. RAIAL AND PEDAL PULSES ARE STRONG WITH NORMAL CAPILLARY REFILL.PT PRESENT WITH SCABBIN SUN BILATERAL SHINS. SKIN IS WARM AND DRY WITH NO BREAK DOWN. PT DENIES ANY PAIN OR DISCOMFORTS AT THIS TIME. ALL SAFETY AND ISOLATION PRECAUTIONS IN PLACE IN PLACE. WILL CONTINUE TO MONITOR
[2019-10-24 11:03] VITALS: BP 150/83
--- NOTE | 2019-10-24 12:34 | NUR ---
TEST WALK COMPLETED. PT RESTING IN BED. RESPIRATIONS ARE EVEN AND UNLABORED. IV FLUIDS RUNNING AT 10 ML ORDERED, SITE APPEARS HEALTHY AND PATENT. PT DENIES ANY PAIN OR DISCOMFORTS AT THIS TIME. ALL SAFTEY PRECAUTIONS ARE IN PLACE WITH CALL LIGHT IN REACH. WILL CONTINUE TO MONITOR
[2019-10-24 15:15] VITALS: BP 152/68
--- NOTE | 2019-10-24 16:29 | NUR ---
PT SITTING UP ON SIDE OF BED. RESPIRATIONS ARE EVEN AND UNLABOREED WITH NO SIGNS OF DISTRESS. PT DENIES ANY PAIN OR DSICOMFORTS. ALL SAFETY PRECAUTIONS IN PLACE WITH CALL LIGHT IN REACH. WILL CONTINUE TO MONITOR
[2019-10-24 19:46] VITALS: BP 116/66
[2019-10-24 19:48] VITALS: BP 151/75
--- NOTE | 2019-10-24 21:20 | NUR ---
PT LAYING IN BED RESTING, NO APPARENT DISTRESS, RESPIRATIONS REG & UNLABORED. PHYSICAL ASSESMENT COMPLETE. PT CURRENTLY DENIES PAIN OR DISCOMFORT. SCHEDULED MEDS ADMINISTERED, SEE E-MAR. PT DENIES ANY NEEDS AT THIS TIME. PLAN OF CARE REVIEWED, PT DENIES QUESTIONS, VERBALIZES UNDERSTANDING. ITEMS WITHIN REACH, BED LOCKED IN LOW POSITION W/ BEDRAILS UP X2. CALL GUILLEN WITHIN REACH, AGREES TO CALL PRN.
[2019-10-25 04:52] VITALS: BP 161/80
[2019-10-25 05:20] LABS: HEMATOCRIT 34.4 % (39.0-50.0); HEMOGLOBIN 10.7 g/dl (14.0-18.0); IMMATURE GRANULOCYTES 1.9 % (0.0-5.0); MEAN CORPUSCULAR HGB 27.4 pG CALC (26.0-32.0); MEAN CORPUSCULAR HGB CONC 31.1 g/dL CAL (32.0-36.0); NEUT# 6.25 thou/uL (1.82-7.42); RED BLOOD COUNT 3.91 mill/uL (4.70-6.10); RED CELL DISTRI WIDTH 15.4 % (11.5-15.5)
[2019-10-25 05:41] LABS: ALBUMIN 2.8 g/dL (3.2-5.0); BILIRUBIN, TOTAL 0.4 mg/dL (0.0-1.4); CREATININE 4.7 mg/dL (0.7-1.3); POTASSIUM 3.3 mmol/l (3.5-5.1); TOTAL PROTEIN 5.4 g/dL (6.3-8.2)
[2019-10-25 06:23] LABS: ALBUMIN 2.7 g/dL (3.2-5.0); CREATININE 4.7 mg/dL (0.7-1.3); POTASSIUM 3.4 mmol/l (3.5-5.1)
[2019-10-25 08:06] VITALS: BP 162/82
--- NOTE | 2019-10-25 08:06 | NUR ---
PT SITTING ON SIDE OF BED, NO SIGNS OF DISTRESS NOTED, RESP EVEN AND UNLABORED. PT ALERT AND ORIENTED X3, DISCUSSED POC, PT VERBALIZED UNDERSTANDING. NOTED EDEMA TO BLE, ENCOURAGED PT TO ELEVATE. PT HAD A BM THIS AM, ASSESSMENT COMPLETED, CALL LIGHT IN REACH,CONTINUE TO MONITOR.
[2019-10-25 11:02] VITALS: BP 140/60
--- NOTE | 2019-10-25 11:30 | NUR ---
DISCUSSED POTASSIUM PO PT AGREES. CALL LIGHT IN REACH,CONTINUE TO MONITOR.
[2019-10-25 15:10] VITALS: BP 151/75
--- NOTE | 2019-10-25 16:20 | NUR ---
DISCUSSED DISCHARGE INSTRUCTIONS WITH PT, COVID DISCHARGE INSTRUCTIONS GIVEN. PT STATES HE DOES NOT HAVE HIS PORTABLE O2 TANK AND IS UNSURE WHO HIS OXYGEN PROVIDER WAS. CATARINO FROM [employer] SPOKE WITH LETTY FROM [employer] AND [employer] TO BRING AN OXYGEN TANK FOR PT TO BORROW. TRAFFIC CONTROL OFFICER NOTIFIED THAT PT NEEDS RIDE HOME, PERMISSION RECEIVED TO PROVIDE PT A [facility] RIDE HOME. [facility] ETA AT 1730. CALL LIGHT IN REACH,CONTINUE TO MONITOR.
--- NOTE | 2019-10-25 17:48 | NUR ---
Discharge instructions given. Patient verbalizes understanding of same. Discharged in stable condition via Ambulatory to Home with friend. All belongings sent with pt.
== END 2019-10-25 17:48 | DRG 177 ==
LOC: ED 19:23 → ED-I 21:08 → ED 21:34 → ED-I 21:35 → MS2 21:35
PROVIDERS: Emergency Medicine; Internal Medicine Nephrology; Nurse Practitioner Family; ADMIT Internal Medicine; ATTEND Internal Medicine
DX: U07.1 COVID-19 (principal); J12.89 Other viral pneumonia; I50.33 Acute on chronic diastolic (congestive) heart failure; J96.01 Acute respiratory failure with hypoxia; I13.0 Hypertensive heart and chronic kidney disease with heart failure and stage 1 through stage 4 chronic kidney disease, or unspecified chronic kidney disease; L03.116 Cellulitis of left lower limb; L03.115 Cellulitis of right lower limb; N18.4 Chronic kidney disease, stage 4 (severe); N17.9 Acute kidney failure, unspecified; E87.1 Hypo-osmolality and hyponatremia; E87.2 Acidosis; E11.22 Type 2 diabetes mellitus with diabetic chronic kidney disease; E11.40 Type 2 diabetes mellitus with diabetic neuropathy, unspecified; E78.5 Hyperlipidemia, unspecified; E03.9 Hypothyroidism, unspecified; D63.1 Anemia in chronic kidney disease; I07.1 Rheumatic tricuspid insufficiency; E87.6 Hypokalemia; S80.922A Unspecified superficial injury of left lower leg, initial encounter; S80.921A Unspecified superficial injury of right lower leg, initial encounter; X58.XXXA Exposure to other specified factors, initial encounter; Z99.81 Dependence on supplemental oxygen
CPT/HCPCS: G0378; J1756

== ENCOUNTER 2019-10-28 14:50 | Inpatient (IN) | payer MEDICARE, MEDICAID ==
[~2019-10-28] VITALS: Ht 165.1 cm; Wt 113.0 kg
[~2019-10-28 14:50] MED LIST changes: +AMLODIPINE BESY10 MG PO; +BUMETANIDE2 MG PO; +LISINOPRIL10 MG PO; +SPIRONOLACTONE50 MG PO
--- NOTE | 2019-10-28 14:53 | NUR ---
PT TO ROOM VIA EMS
--- NOTE | 2019-10-28 15:13 | NUR ---
PT PLACED ON 10L HIGH FLOW NC, S02 94%. HOB ELEVATED, PT STATES" FEELING BETTER"
[2019-10-28 15:23] LABS: HEMATOCRIT 33.9 % (39.0-50.0); HEMOGLOBIN 10.5 g/dl (14.0-18.0); IMMATURE GRANULOCYTES 1.3 % (0.0-5.0); MEAN CORPUSCULAR HGB 27.6 pG CALC (26.0-32.0); NEUT# 10.46 thou/uL (1.82-7.42); RED BLOOD COUNT 3.81 mill/uL (4.70-6.10); RED CELL DISTRI WIDTH 16.4 % (11.5-15.5)
[2019-10-28] MEDS ORDERED: LISINOPRIL10 MG PO (15:26)
--- NOTE | 2019-10-28 15:38 | NUR ---
PT PLACED ON 10L HFNC SO2 96% PER DR. PHELAN. RN CAM AWARE
[2019-10-28 15:41] LABS: ALBUMIN 2.8 g/dL (3.2-5.0); POTASSIUM 3.8 mmol/l (3.5-5.1); TOTAL PROTEIN 5.6 g/dL (6.3-8.2)
[2019-10-28 15:45] LABS: BILIRUBIN, TOTAL 0.6 mg/dL (0.0-1.4)
[2019-10-28 15:46] LABS: CREATININE 5.4 mg/dL (0.7-1.3)
--- NOTE | 2019-10-28 16:10 | NUR ---
PT SITTING UP ON STRETCHER; LABORED BREATHING NOTED; HI FLOW NC @10L IN PLACE; RT AT BEDSIDE; O2 SAT 92%; PT ADVISED OF POC; MONITORING DEVICES IN PLACE; VSS; WILL CONTINUE TO MONITOR
--- NOTE | 2019-10-28 17:10 | NUR ---
DR PHELAN AT BEDSIDE TO DISCUSS POC AND FINDINGS
--- NOTE | 2019-10-28 18:30 | NUR ---
Admission Note Report Given to: KASSIDY JOHNSON Transported by: Wheelchair X Stretcher Transported with: X Nurse Transporter X Patent IV X O2 X Team Truck Driver Location: X ICU MS2
--- NOTE | 2019-10-28 18:30 | NUR ---
PT ARRIVED TO ICU5 BY STRETCHER WITH TELE & O2. PT ABLE TO AMBULATE WITH ASSISTANCE TO BED. PT ON MONITOR. SITTING UP IN BED, EATING DINNER FROM [employer]. CALLBELL W/IN REACH.
[2019-10-28 19:00] VITALS: BP 147/71
--- NOTE | 2019-10-28 19:10 | NUR ---
PT IS ALERT AND ORIENTED X4. O2 SAT IS BETWEEN 88%-89%, WITH HOB SITTING UP. PT WAS EDUCATED ON LAYING PRONE, PT WAS ASSISTED MINIMALLY AND WAS ABLE TO LAY PRONE, PT'S O2 WAS TITRATED TO 13 L/MIN H FL NC H. O2 90%-93%. NURSING ASSESSMENT PERFORMED, IV X2 INTACT, FLUSH PROPERLY, SALINE LOCKED. SR ON TELEMETRY. AFEBRILE. PT ABLE TO ANSWER ALL ADMISSION QUESTIONS AND MED RECONCILED. PT'S MEDS IN HIS BELONGING BAG. WEIGHT TAKEN. CALL LIGHT WITHIN REACH.
[2019-10-28 20:00] VITALS: BP 142/75
--- NOTE | 2019-10-28 20:23 | NUR ---
CALLED AND SPOKE TO DR NAM REGARDING PT'S IV FLUIDS THAT WERE ORDERED, PT REPORTS HE IS DIABTETIC, HE DOES NOT TAKE ANY DIABETES MEDS AT HOME, ALSO REPORTED HE HAS EDEMA 2+ IN LOWER EXTREMITIES AND CRACKLES ON POSTERIOR RIGHT SIDE. PT IS ONLY SOB WITH EXERTION, SATS 95% LAYING IN PRONE POSITION ON 13 L/MIN HIGH FLOW NC. DR REPORTS HE WILL REVIEW ALL HOME MEDS AND RESTART. ALSO REPORTED PT NOT ABLE TO MOVE AROUND, WEAKNESS, AND LAYS PRONE, NEW ORDERS RECEIVED FOR INSERTION OF ESCOBEDO CATH IF NEEDED. NEW MED ORDERS RECEIVED WELL.
[2019-10-28 21:00] VITALS: BP 165/86
--- NOTE | 2019-10-28 21:00 | NUR ---
BLOOD SUGAR WAS CHECKED, NO INSULIN NEEDED. 18 [address] ESCOBEDO CATHETER WAS SUCCESSFULLY INSERTED, PT DID USE THE URINAL X1. PICS OF BILAT LEGS AND BUTTOCKS TAKEN. BUTTOCKS WAS WASHED UP AND PAT DRY. PT DOES BECOME SOB. PT WAS LAYED BACK PRONE. WATER PROVIDED.
--- NOTE | 2019-10-28 21:20 | NUR ---
PATIENT WAS ABLE TO SWALLOW ALL OF HIS BEDTIME MEDS WITHOUT DIFFICULTY. EDUACTED HIM ON HEPARIN INJECTION, PT UNDERSTANDS AND AGREES. CONTINUES TO LAY PRONE. CALL LIGHT WITHIN REACH.
[2019-10-28 21:40] LABS: URINE BILIRUBIN - DIPSTICK NEGATIVE (NEGATIVE); URINE BLOOD DIPSTICK MODERATE (NEGATIVE); URINE COLOR YELLOW; URINE GLUCOSE - DIPSTICK 100 mg/dL (NEGATIVE); URINE KETONE NEGATIVE (NEGATIVE); URINE LEUK ESTERASE NEGATIVE (NEGATIVE); URINE NITRITE - DIPSTICK NEGATIVE (Negative); URINE PROTEIN - DIPSTICK >=300 mg/dL (NEG-TRACE); URINE SPECIFIC GRAVITY >=1.030; URINE UROBILINOGEN - DIPSTICK 0.2 E.U./dL (0.2)
[2019-10-28 21:47] LABS: URINE AMORPH SEDIMENT MODERATE hpf (NONE-FER); URINE WBC 0-2 WBC/hpf (0-5)
[2019-10-28 22:00] VITALS: BP 119/69
--- NOTE | 2019-10-28 22:45 | NUR ---
PATIENT LAUNDRETTE OWNER LIGHT, REQUESTS TO USE BEDSIDE COMMODE TO HAVE A BOWEL MOVEMENT. PT WAS ASSISTED TO BSC. SOB WITH EXERTION NOTED. STATES, "FALSE ALARM." DID NOT HAVE BM. PT ASSISTED SAFELY BACK TO BED, WAS ASSITED WITH LAYING PRONE, PT DOES LEAN TO HIS RIGHT SIDE. CALL LIGHT WITHIN REACH.
--- NOTE | 2019-10-28 22:56 | NUR ---
CONSULT PLACED FOR DR PLAZA, TELEPHONE ORDER BY DR NAM.
[2019-10-29] VITALS (37 sets, daily range): BP systolic 95–188; BP diastolic 48–90
--- NOTE | 2019-10-29 00:21 | NUR ---
PT'S O2 TITARTED TO 15 L/MIN. PT WAS LAYING ON HIS RIGHT SIDE AND WAS ASSISTED TO LAY PRONE, PT RESTLESS. PT'S O2 IN THE 80'S, WITH HIM MOVING AROUND.
--- NOTE | 2019-10-29 00:32 | NUR ---
PT'S O2 SAT IS 91% ON 15 L/MIN HIGH FLOW NC.
--- NOTE | 2019-10-29 01:44 | NUR ---
PT SAT UP ON SIDE OF BED. O2 SAT DROPS TO LOW 80'S, PT BECOMES SOB. PT WAS EDUCATED ON IM[PORTANCE OF LAYING PRONE AND ACTIVITY NEEDS TO BE MINIMAL AT THIS MOMENT DUE TO HIM DESATING. PT STATES," I KNOW BUT I JUST NEED TO SIT UP FOR A MOMENT." PT WAS PLACED ON NON REBREATHER AT 15 L/MIN DUE TO O2 SAT WAS CONSTANT AT 84%. O2 SAT NOW IS 89%. PT REFUSES TO LAY PRONE AND LAYS ON HIS RIGHT SIDE.
--- NOTE | 2019-10-29 02:19 | NUR ---
PT NEEDS CONSTANT REINFORCEMENT TO LAY PRONE, ASSISTED TO LAY CLOSER TO PRONE, O2 SAT 90%-91%. WILL CONTINUE TO MONITOR.
--- NOTE | 2019-10-29 03:18 | NUR ---
RT IN ROOM TO GET ABG.
--- NOTE | 2019-10-29 04:18 | NUR ---
CALLED AND SPOKE TO DR NAM REGARDING PATIENT'S ABG RESULTS. NEW ORDERS RECEIVED.
--- NOTE | 2019-10-29 04:40 | NUR ---
CALLED AND SPOKE TO DR NAM FOR CLARIFICATION OF SODIUM BICARBONATE ORDER.
--- NOTE | 2019-10-29 05:20 | NUR ---
PT LAYS PRONE, RESPIRATIONS ARE SHALLOW, 28 BREATHS/MIN. O2 SAT 88%-92% IF LAYS PRONE, HE DOES DESAT WITH EXERTION. 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
[2019-10-29 05:46] LABS: HEMATOCRIT 35.5 % (39.0-50.0); HEMOGLOBIN 10.9 g/dl (14.0-18.0); IMMATURE GRANULOCYTES 1.4 % (0.0-5.0); MEAN CELL VOLUME 90.6 fL CALC (80.0-100.0); MEAN CORPUSCULAR HGB 27.8 pG CALC (26.0-32.0); MEAN CORPUSCULAR HGB CONC 30.7 g/dL CAL (32.0-36.0); NEUT# 11.53 thou/uL (1.82-7.42); RED BLOOD COUNT 3.92 mill/uL (4.70-6.10); RED CELL DISTRI WIDTH 16.6 % (11.5-15.5)
[2019-10-29 06:20] LABS: POTASSIUM 3.6 mmol/l (3.5-5.1)
[2019-10-29 06:25] LABS: CREATININE 5.6 mg/dL (0.7-1.3)
[2019-10-29 06:34] LABS: C-REACTIVE PROTEIN 20.3 mg/dL (0-0.9)
--- NOTE | 2019-10-29 07:18 | NUR ---
REPORT RECEIVED FROM KASSIDY MOE. PT RESTING ON BED ON RIGHT SIDE; ALERT AND ORIENTED. C/O RIGHT SHOULER PAIN. RESPIRATIONS SHALLOW AND SLIGHTLY LABORED AT 32 PER MINUTE; SPO2 81% ON 15L NON REBREATHER. REPOSTIONED INTO PRONE AND SPO2 INCREASED TO 87%. SODIUM BICARB INFUSING AT 50ML/HR; PERIPHERAL IV SITES X 2 APPEAR HEALTHY AND FLUSH.
--- NOTE | 2019-10-29 07:58 | NUR ---
DR. MANCERA NOTIFIED OF CONSULT.
--- NOTE | 2019-10-29 08:02 | NUR ---
DR. NAM AT BEDSIDE WITH ORDERS FOR INTUBATION. ANESTHESIA NOTIFIED. NEW MED ORDERS RECEIVED. RT ALSO AT BEDSIDE.
--- NOTE | 2019-10-29 08:19 | NUR ---
ANESTHESIA AT BEDSIDE. PT ALERT AND ORIENTED. AGAIN GIVES VERBAL CONSENT.
--- NOTE | 2019-10-29 08:45 | NUR ---
INTUBATED WITH 7.5 ET TUBE AT 0823; 23 AT THE LIP. OG TUBE INSERTED WITH IMMEDIATE RETURN OF GASTRIC CONTENT; APPLIED TO LIS. SCDS INTACT TO BLE. BILATERAL WRIST RESTRAINTS APPLIED. VENT SETTINGS ON ASSIST CONTROL; RESP AT 20; TV 500; PEEP 5; O2 100%. PROPOFOL INFUSING AT 5 MCG/KG/MIN TO RAC PERIPHERAL SITE; BICARB INFUSING AT 50ML/HR TO RIGHT HAND PERIPHERAL SITE. PT ADEQUATELY SEDATED.
--- NOTE | 2019-10-29 09:20 | NUR ---
RADIOLOGY AT BEDSIDE FOR CHEST XRAY. IV PROTONIX AND SQ HEPARIN ADMINISTERED.
--- NOTE | 2019-10-29 09:54 | NUR ---
Patient is screened for rehab intervention and it is felt he would benefit from PT referral
--- NOTE | 2019-10-29 10:14 | NUR ---
PROPOFOL NOW INFUSING AT 25 MCG/KG/MIN AFTER TITRATIONS; BP ELEVATED. RT AT BEDSIDE; TIDAL VOLUME DECREASED FROM 500 TO 450.
--- NOTE | 2019-10-29 12:16 | NUR ---
BLOOD PRESSURE IMPROVED; NOW 127/62 HR 61. PT REPOSITIONED WITH PILLOWS; NO SIGNS OF DISTRESS. ESCOBEDO DRAINING CLEAR YELLOW URINE.
--- NOTE | 2019-10-29 13:05 | NUR ---
DR. MANCERA AT BEDSIDE TO EVALUATE PATIENT; RECOMMENDS TRANSFER; SPOKE WITH DR. NAM; AGREED ON TRANSFER TO [facility] ICU DX ACUTE HYPOXIC RESPIRATORY FAILURE SECONDARY TO COVID19 AND ACUTE RENAL FAILURE. ACCEPTING DR DR DAWSON; NEPHROLOGY CONSULT DR RAY. SPOKE WITH SKYLAR AT [facility] AT 1250; FAXED FACE SHEET AND POSITIVE PCR RESULTS.
--- NOTE | 2019-10-29 13:32 | NUR ---
ZITHROMAX INFUSING AND DECADRON GIVEN AT THIS TIME. PT REPOSITIONED ONTO LEFT SIDE. RENAL FUNCTION TOO POOR FOR REMDESIVIR.
--- NOTE | 2019-10-29 15:07 | NUR ---
VERBAL CONSENT RECEIVED FROM PATIENTS PERSON TO NOTIFY, MARILYN BALDERAS; VERIFIED WITH 2 NURSES. MARILYN UPDATED ON PATIENTS CONDITION.
--- NOTE | 2019-10-29 16:06 | NUR ---
BED ASSIGNMENT RECEIVED FROM [facility]; 5C BED 4; ACCEPTING PHYSICIAN DR. LORA. CALL REPORT TO [phone]. SPOKE WITH RADHA AT [facility]; ETA 2.5-3 HRS.
--- NOTE | 2019-10-29 17:47 | NUR ---
call received from [facility] Yael GARCIA currently 2.5 hours
--- NOTE | 2019-10-29 18:15 | NUR ---
IV SITE TO RAC LEAKING; DRESSING REPLACED AND SITE CLEANSED; FLUSHES WELL; NOW SALINE LOCKED. NEW #20G PLACED TO LAC AND PROPOFOL NOW INFUSING AT THIS SITE. EMS SITE TO RIGHT HAND APEARS HEALTHY AND CONTINUES TO INFUSE BICARB AT 50 ML/HR. OG TUBE WITH SCANT AMOUNT OF YELLOW GASTRIC CONTENT. 400ML OF CLEAR YELLOW URINE EMPTIED FROM ESCOBEDO. PT REPOSITIONED; ALL EXTREMITIES ELEVATED ON PILLOWS. NEEDS ANTICIPATED BY STAFF.
--- NOTE | 2019-10-29 18:26 | NUR ---
NOTIFIED DONNIE IN [facility] ICU OF DELAYED TRANSPORT.
--- NOTE | 2019-10-29 19:30 | NUR ---
vent cont assisted by pt. diminished breath sounds bilat. og in place draining green. quality assurance monitor chassis shows sinus rhythm. #20 rt hand bicarb gtt infusing @ 50cchr. #20 rac saline lock. #20 lac diprivan gtt infusing @ 25mcg/kg/min. figueredo cath in place draining clear yellow urine. bilat wrist restraints, scds & air/contact precautions cont. requires total care for all needs. turned & repositioned.
--- NOTE | 2019-10-29 21:15 | NUR ---
called juliette from [facility] & asked eta on transport team. instructed team was late leaving [facility]. would arrive approx 2200. gianna from [facility] notified.
--- NOTE | 2019-10-29 22:15 | NUR ---
geoff from [facility] called this verse writer & asked if pt had left yet. instructed geoff info rec'd from juliette.
--- NOTE | 2019-10-29 22:30 | NUR ---
[facility] here.
--- NOTE | 2019-10-29 23:10 | NUR ---
[facility] left. report called shailesh kerns @ [phone]. to go to 5c bed 4.
== END 2019-10-29 23:10 | disposition short-term general hospital (02) | DRG 208 ==
LOC: ED 14:50 → ED-I 16:20 → ED 16:55 → ICU 16:56 → ED-I 16:56 → ICU 17:34
PROVIDERS: Emergency Medicine; ADMIT Internal Medicine; ATTEND Internal Medicine
PROC: 0BH17EZ Insertion of Endotracheal Airway into Trachea, Via Natural or Artificial Opening (ICD-10-PCS; principal; 2019-10-29)
PROC: 5A1935Z Respiratory Ventilation, Less than 24 Consecutive Hours (ICD-10-PCS; 2019-10-29)
DX: U07.1 COVID-19 (principal); J12.89 Other viral pneumonia; J96.01 Acute respiratory failure with hypoxia; I50.33 Acute on chronic diastolic (congestive) heart failure; I13.0 Hypertensive heart and chronic kidney disease with heart failure and stage 1 through stage 4 chronic kidney disease, or unspecified chronic kidney disease; N17.9 Acute kidney failure, unspecified; E87.1 Hypo-osmolality and hyponatremia; J44.0 Chronic obstructive pulmonary disease with (acute) lower respiratory infection; E87.4 Mixed disorder of acid-base balance; E11.22 Type 2 diabetes mellitus with diabetic chronic kidney disease; N18.3 Chronic kidney disease, stage 3 (moderate); M10.9 Gout, unspecified; E78.5 Hyperlipidemia, unspecified; E03.9 Hypothyroidism, unspecified; D63.1 Anemia in chronic kidney disease; Z99.81 Dependence on supplemental oxygen
CPT/HCPCS: S0164

== ENCOUNTER 2020-04-29 11:44 | Emergency (ER) | payer MEDICARE, MEDICAID ==
[~2020-04-29] VITALS: Ht 165.1 cm; Wt 70.0 kg
[2020-04-29 13:00] LABS: HEMOGLOBIN 10.2 g/dl (14.0-18.0); IMMATURE GRANULOCYTES 0.5 % (0.0-5.0); MEAN CORPUSCULAR HGB 31.3 pG CALC (26.0-32.0); NEUT# 7.5 thou/uL (1.82-7.42); RED BLOOD COUNT 3.26 mill/uL (4.70-6.10); RED CELL DISTRI WIDTH 16.2 % (11.5-15.5)
[2020-04-29 13:01] LABS: MEAN CELL VOLUME 104.3 fL CALC (80.0-100.0)
[2020-04-29 13:12] LABS: ALBUMIN 2.9 g/dL (3.2-5.0); MAGNESIUM 1.6 mg/dL (1.6-2.3); TOTAL PROTEIN 5.8 g/dL (6.3-8.2)
[2020-04-29 13:20] LABS: BILIRUBIN, TOTAL 0.3 mg/dL (0.0-1.4)
[2020-04-29 13:21] LABS: CREATININE 5.8 mg/dL (0.7-1.3); POTASSIUM 6.3 mmol/l (3.5-5.1)
[2020-04-29 13:36] LABS: INTERNATIONAL NORMALIZED RATIO 1.1 RATIO (0.7-1.3); PROTHROMBIN TIME 10.7 SECONDS (9.0-12.5)
[2020-04-29 14:22] LABS: URINE BILIRUBIN - DIPSTICK NEGATIVE (NEGATIVE); URINE BLOOD DIPSTICK MODERATE (NEGATIVE); URINE COLOR YELLOW; URINE GLUCOSE - DIPSTICK 100 mg/dL (NEGATIVE); URINE KETONE TRACE mg/dL (NEGATIVE); URINE LEUK ESTERASE NEGATIVE (NEGATIVE); URINE NITRITE - DIPSTICK NEGATIVE (Negative); URINE PH 5.5 (4.5-8.0); URINE PROTEIN - DIPSTICK >=300 mg/dL (NEG-TRACE); URINE SPECIFIC GRAVITY 1.025; URINE UROBILINOGEN - DIPSTICK 0.2 E.U./dL (0.2)
[2020-04-29 14:31] LABS: URINE RBC 0-2 RBC/hpf (0-5); URINE SQUAMOUS EPITHELIAL CELL RARE EPI/hpf (0-FEW)
[2020-04-29 14:45] VITALS: BP 179/74
== END 2020-04-29 14:45 | disposition short-term general hospital (02) ==
LOC: ED 11:44
DX: I11.0 Hypertensive heart disease with heart failure (principal); I50.9 Heart failure, unspecified; N17.9 Acute kidney failure, unspecified; E87.5 Hyperkalemia; E11.9 Type 2 diabetes mellitus without complications; M10.9 Gout, unspecified; Z86.16 Personal history of COVID-19; Z20.822 Contact with and (suspected) exposure to COVID-19